=== PATIENT | female | born 1975 | race Hispanic/Latino ===

== ENCOUNTER 2017-11-09 08:22 | Day surgery (SDC) | payer MEDICAID ==
[2017-11-08 14:24] VITALS: BMI 34.4
[2017-11-09] MEDS ORDERED: Propofol 10 mg/ml Inj (20 ML) ONE ×2 (12:23→12:31)
[2017-11-09 12:55] VITALS: TEMP 97.3
[2017-11-09 12:56] VITALS: O2SAT 100
[2017-11-09 13:09] VITALS: BP 133/64; PULSE 65; RESP 14
== END 2017-11-09 13:05 | disposition home or self-care (01) ==
LOC: C.ENDO 08:22
PROVIDERS: ATTEND Internal Medicine Gastroenterology
DX: R13.10 Dysphagia, unspecified (principal); K44.9 Diaphragmatic hernia without obstruction or gangrene; K20.9 Esophagitis, unspecified
CPT/HCPCS: 43239; 84703; 88305; J2704